=== PATIENT | female | born 1970 | race American Indian/Alaskan Native ===

== ENCOUNTER 2019-07-26 14:06 | Outpatient (CLI) | payer BC ==
--- NOTE | 2019-07-26 16:23 | Mammography Report ---
DIGITAL SCREENING MAMMOGRAM WITH TOMOSYNTHESIS WITH CAD, 07/26/2019 INDICATION: Routine Screening Mammography. TECHNIQUE: Digital left 2D and 3D mammography with tomosynthesis was obtained in the craniocaudal an d mediolateral oblique projections. Computer-Aided Detection (CAD) analysis was used for interpretat ion of this study. COMPARISON: 07/08/2014 FINDINGS: Breast Density: The breasts are heterogeneously dense, which may obscure small masses. A spiculated right upper outer mass is identified image 51 of the CC aurelia series and image 45 of the MLO aurelia series. It is also apparent on the right 2-D CC image. No architectural distortion or suspic ious calcifications of the right breast. A left outer asymmetry on 2-D CC and image 39 of the CC aurelia series. Asymmetry on the left MLO 2-D image but the left MLO aurelia series is negative. No architectur al distortion or suspicious calcifications of the left breast. IMPRESSION: 1. A right upper outer spiculated mass requiring additional imaging and a left upper outer asymmetrie s requiring additional imaging. 2. Recommend recall for bilateral spot magnification views and bilateral breast ultrasound if needed. Follow up recommendation: Special View: Mag Category 0: Incomplete. Needs additional imaging evaluation and/or prior mammograms for comparison. A "normal" or negative report should not discourage follow up or biopsy of a clinically significant f inding. A written summary of these findings will be mailed to the patient. The patient will be entered into a mammography reporting system which will generate a reminder letter for the patient's next appointmen t at the appropriate interval. The [employer] recommends yearly mammograms starting at age 40 and continuing as l [place] as a woman is in good health. Breast MRI is recommended for women with an approximate 20-25% or greater lifetime risk of breast cancer, including women with a strong family history of breast or ova joce cancer or who have been treated for Hodgkin's disease. Signer Name: José Miguel Avilez MD Signed: 07/26/2019 4:18 PM Workstation Name: [id number]
== END 2019-07-26 14:07 | disposition home or self-care (01) ==
LOC: SPVWC 14:06 → MAMMO 14:06 → SPVWC 14:07
PROVIDERS: ATTEND Family Medicine Adult Medicine
DX: Z12.31 Encounter for screening mammogram for malignant neoplasm of breast (principal); N63.11 Unspecified lump in the right breast, upper outer quadrant
CPT/HCPCS: 77063; 77067

== ENCOUNTER 2019-09-30 09:20 | Outpatient (CLI) | payer BC ==
--- NOTE | 2019-10-02 08:46 | Mammography Report ---
BILATERAL DIGITAL DIAGNOSTIC MAMMOGRAM WITH CAD 09/30/2019 BILATERAL LIMITED BREAST ULTRASOUND INDICATION: RT BREAST SPICUALTED MASS AND LT BREAST ASYMMETRY TECHNIQUE: Digital bilateral mammographic imaging was performed. Magnification views were obtained. Limited ultrasound was performed. This examination was interpreted with the benefit of Computer-Aided Detection (CAD) analysis. COMPARISON: 07/26/2019 screening mammogram. FINDINGS: Breast Density: The breasts are heterogeneously dense, which may obscure small masses. MAMMOGRAPHIC FINDINGS: Bilateral lateral medial and spot magnification views were performed. Near com plete effacement of bilateral asymmetries. ULTRASOUND FINDINGS: Targeted ultrasound evaluation was performed of the area of interest. Bilatera l outer ultrasound was performed. A cluster of tiny benign cysts in the right breast at 11:00 7 cm fr om the nipple probably correlates with the mammographic abnormality. A benign lymph node at 10:00 8 c m from the nipple measures 1.9 x 0.6 x 0.7 cm. A benign right axillary lymph node at 10:00 13 cm from the nipple. Ultrasound of the left breast demonstrates a few subcentimeter cysts and benign clustered cysts at 6: 00 5 cm from the nipple measuring 1.2 x 1.0 x 0.4 cm. No solid mass or shadowing in either breast. IMPRESSION: Bilateral benign cysts and no suspicious finding. Follow up recommendation: Routine yearly BI-RADS Category 2: Benign. A "normal" or negative report should not discourage follow up or biopsy of a clinically significant f inding. A written summary of these findings will be mailed to the patient. The patient will be entered into a mammography reporting system which will generate a reminder letter for the patient's next appointmen t at the appropriate interval. According to the [employer], yearly mammograms are recommended starting at age 40 and continuing as long as a woman is in good health. Breast MRI is recommended for women with an emilio roximately 20-25% or greater lifetime risk of breast cancer, including women with a strong family his tory of breast or ovarian cancer and women who have been treated for Hodgkin's disease. Signer Name: José Miguel Avilez MD Signed: 09/30/2019 11:20 AM Workstation Name: [id number]
== END 2019-09-30 09:21 | disposition home or self-care (01) ==
LOC: SPVWC 09:20
PROVIDERS: ATTEND Family Medicine Adult Medicine
DX: N60.01 Solitary cyst of right breast (principal); N60.02 Solitary cyst of left breast; N63.11 Unspecified lump in the right breast, upper outer quadrant; N64.89 Other specified disorders of breast
CPT/HCPCS: 77066